=== PATIENT | female | born 1940 | race Two or more races ===

== ENCOUNTER 2018-05-13 23:51 | Emergency (ER) | payer MEDICARE, MEDICAID ==
[~2018-05-13] VITALS: Ht 170.2 cm; Wt 101.7 kg
[2018-05-14 00:39] LABS: GLUCOSE,POINT OF CARE 115 MG/DL (70-110)
[2018-05-14] MEDS ORDERED: RISP.5 PO (00:41)
[2018-05-14] MEDS ORDERED: DIGO-44 PO (00:41)
[2018-05-14] MEDS ORDERED: INSLAN SQ (00:41)
[2018-05-14] MEDS ORDERED: HYDR-4455 PO (00:41)
[2018-05-14] MEDS ORDERED: FURO40 PO (00:41)
[2018-05-14] MEDS ORDERED: PANT40TA25 PO (00:41)
[2018-05-14] MEDS ORDERED: MELA5TAB3 PO (00:41)
[2018-05-14] MEDS ORDERED: GABA-529 PO (00:41)
[2018-05-14] MEDS ORDERED: RISP4 PO (00:41)
[2018-05-14] MEDS ORDERED: ERGO2500 PO (00:41)
[2018-05-14] MEDS ORDERED: INSNOV SQ (00:41)
[2018-05-14] MEDS ORDERED: LOSA50TA64 PO (00:41)
[2018-05-14 01:04] LABS: BASOPHILS % (AUTO) 0.7 % (0.0-2.0); EOSINOPHILS % (AUTO) 0.5 % (1.0-6.0); HEMATOCRIT 28.6 % (36-46); HEMOGLOBIN 9.7 g/dL (12.0-16.0); LYMPHOCYTES # (AUTO) 0.8 K/uL (1.0-4.8); LYMPHOCYTES % (AUTO) 7.6 % (22.0-44.0); MEAN CORPUSCULAR HEMOGLOBIN 30.2 pg (26.0-34.0); MEAN CORPUSCULAR HGB CONC 33.7 G/dL (31.0-37.0); MEAN CORPUSCULAR VOLUME 90 fL (80-100); MONOCYTES # (AUTO) 0.8 K/uL (0.1-1.0); MONOCYTES % (AUTO) 7.8 % (2.0-9.0); NEUTROPHILS # (AUTO) 8.6 K/uL (1.8-7.7); NEUTROPHILS % (AUTO) 83.4 % (40.0-70.0); PLATELET COUNT (AUTO) 450 K/uL (150-450); RED BLOOD CELL COUNT(AUTO) 3.19 MIL/uL (4.00-5.20)
[2018-05-14 01:14] LABS: PROTHROMBIN TIME 10.9 SEC (9.4-11.6)
[2018-05-14 01:21] LABS: APPEARANCE,URINE CLOUDY (CLEAR); BILIRUBIN,URINE NEGATIVE (NEGATIVE); GLUCOSE, URINE (UA) NEGATIVE (NEGATIVE); KETONES,URINE NEGATIVE (NEGATIVE); LEUKOCYTE ESTERASE ,URINE TRACE (NEGATIVE); NITRATE,URINE NEGATIVE (NEGATIVE); OCCULT BLOOD,URINE TRACE (NEGATIVE); PROTEIN,URINE SEE CONFIRM (NEGATIVE); UROBILINOGEN,URINE 0.2 mg/dL (<=1.0)
[2018-05-14 01:26] LABS: LACTIC ACID 0.8 mmol/L (0.4-2.0)
[2018-05-14 01:38] LABS: SULFOSALICYLIC ACID,URINE 2+ (Negative)
[2018-05-14 01:39] LABS: RBC,URINE 0-2 /HPF (0-2)
[2018-05-14 01:40] LABS: SQUAMOUS EPITHELIAL CELL,UR Few /LPF (None Seen); YEAST,URINE Moderate /HPF (None Seen)
[2018-05-14 01:41] LABS: BACTERIA,URINE Moderate /HPF (None Seen)
[2018-05-14] MEDS ORDERED: CefTRIAXone 1 GM/DEXTROSE 50 ML IV ONE (02:00)
[2018-05-14] MEDS ORDERED: ACETAMINOPHEN 1000 MG/ISO-OSM 100 ML IV ONE (02:00)
[2018-05-14 02:50] LABS: INFLUENZA TYPE A NEGATIVE FOR TYPE A (NEGATIVE); INFLUENZA TYPE B NEGATIVE FOR TYPE B (NEGATIVE)
[2018-05-14 03:03] LABS: CALCIUM, TOTAL 8.8 mg/dL (8.8-10.5); CREATININE 3.39 mg/dL (0.60-1.30); POTASSIUM 3.7 mmol/L (3.5-5.1)
[2018-05-14 03:09] LABS: ALBUMIN 1.9 g/dL (3.4-5.0); BILIRUBIN,TOTAL 0.3 mg/dL (0.1-1.0); TOTAL PROTEIN, SERUM 7.1 g/dL (6.4-8.2)
[2018-05-14 03:16] LABS: DIGOXIN 0.98 ng/mL (0.90-2.00)
[2018-05-14 03:33] VITALS: BP 124/68
== END 2018-05-14 04:27 | disposition short-term general hospital (02) ==
LOC: EMS 23:53
DX: A41.9 Sepsis, unspecified organism (principal); R41.82 Altered mental status, unspecified; E78.00 Pure hypercholesterolemia, unspecified; E11.22 Type 2 diabetes mellitus with diabetic chronic kidney disease; I13.2 Hypertensive heart and chronic kidney disease with heart failure and with stage 5 chronic kidney disease, or end stage renal disease; I50.9 Heart failure, unspecified; N18.6 End stage renal disease; I48.91 Unspecified atrial fibrillation; Z79.899 Other long term (current) drug therapy; Z79.4 Long term (current) use of insulin; Z99.2 Dependence on renal dialysis
CPT/HCPCS: 36415; 71045; 80053; 80162; 81001; 82550; 82962; 83605; 83880; 84484; 85025; 85610; 85730; 87040; 87086; 87804; 93005; 96365; 96368; 99291; J0131; J0696

== ENCOUNTER 2018-05-30 14:04 | Inpatient (IN) | payer MEDICARE, MEDICAID ==
[~2018-05-30] VITALS: Ht 167.6 cm; Wt 89.5 kg
[~2018-05-30 14:04] MED LIST: DIGO-44 PO; ERGO2500 PO; FURO40 PO; GABA-529 PO; HYDR-4455 PO; INSLAN SQ; INSNOV SQ; LOSA50TA64 PO; MELA5TAB3 PO; PANT40TA25 PO; RISP.5 PO; RISP4 PO
[2018-05-30] MEDS ORDERED: METO25TA6 PO (14:52)
[2018-05-30] MEDS ORDERED: ASPI81TA87 PO (14:52)
[2018-05-30] MEDS ORDERED: APIX5TAB4 PO (14:52)
[2018-05-30] MEDS ORDERED: [UNRECOGNIZED DRUG - CODE] PO (14:52)
[2018-05-30] MEDS ORDERED: AMLO10TA55 PO (14:52)
[2018-05-30 14:59] LABS: GLUCOSE,POINT OF CARE 176 MG/DL (70-110)
[2018-05-30 17:31] LABS: BASOPHILS % (AUTO) 0.5 % (0.0-2.0); EOSINOPHILS % (AUTO) 0.1 % (1.0-6.0); HEMATOCRIT 27.3 % (36-46); HEMOGLOBIN 8.8 g/dL (12.0-16.0); LYMPHOCYTES # (AUTO) 0.8 K/uL (1.0-4.8); LYMPHOCYTES % (AUTO) 5.7 % (22.0-44.0); MEAN CORPUSCULAR HEMOGLOBIN 27.7 pg (26.0-34.0); MEAN CORPUSCULAR HGB CONC 32.2 G/dL (31.0-37.0); MEAN CORPUSCULAR VOLUME 86 fL (80-100); MONOCYTES # (AUTO) 0.6 K/uL (0.1-1.0); MONOCYTES % (AUTO) 4.5 % (2.0-9.0); NEUTROPHILS # (AUTO) 12.5 K/uL (1.8-7.7); NEUTROPHILS % (AUTO) 89.2 % (40.0-70.0); PLATELET COUNT (AUTO) 428 K/uL (150-450); RED BLOOD CELL COUNT(AUTO) 3.17 MIL/uL (4.00-5.20); RED CELL DISTRIBUTION WIDTH 17.5 % (11.5-14.5)
[2018-05-30 17:41] LABS: CALCIUM, TOTAL 8.7 mg/dL (8.8-10.5); CREATININE 5.73 mg/dL (0.60-1.30); POTASSIUM 3.6 mmol/L (3.5-5.1)
[2018-05-30 18:07] LABS: ALBUMIN 1.9 g/dL (3.4-5.0); BILIRUBIN,TOTAL 0.4 mg/dL (0.1-1.0); TOTAL PROTEIN, SERUM 7.1 g/dL (6.4-8.2)
[2018-05-30] MEDS ORDERED: ONDANSETRON HCL 4 MG/2 ML VIAL IVP PRN ×2 (18:45→22:00)
[2018-05-30] MEDS ORDERED: 0.9% SODIUM CHLORIDE 10 ML SYRINGE IVP PRN (18:45)
[2018-05-30] MEDS ORDERED: ACETAMINOPHEN 325 MG TABLET PO PRN (18:45)
[2018-05-30 21:11] VITALS: BP 124/55
[2018-05-30 21:19] LABS: APPEARANCE,URINE CLOUDY (CLEAR); BILIRUBIN,URINE NEGATIVE (NEGATIVE); GLUCOSE, URINE (UA) NEGATIVE (NEGATIVE); KETONES,URINE NEGATIVE (NEGATIVE); LEUKOCYTE ESTERASE ,URINE LARGE (NEGATIVE); NITRATE,URINE NEGATIVE (NEGATIVE); OCCULT BLOOD,URINE MODERATE (NEGATIVE); PH,URINE 7.5 (5.0-8.0); PROTEIN,URINE SEE CONFIRM (NEGATIVE); UROBILINOGEN,URINE 0.2 mg/dL (<=1.0)
[2018-05-30 21:23] LABS: BACTERIA,URINE Many /HPF (None Seen); SQUAMOUS EPITHELIAL CELL,UR Few /LPF (None Seen); SULFOSALICYLIC ACID,URINE 3+ (Negative); WBC,URINE 26-50 /HPF (0-5)
[2018-05-30] MEDS ORDERED: MAGNESIUM HYDROXIDE SUSPENSION 30 ML UDCUP PO PRN (22:00)
[2018-05-30] MEDS ORDERED: ALBUTEROL SULFATE 2.5 MG/0.5 ML NEB SOLUTION NEB PRN (22:00)
[2018-05-30] MEDS ORDERED: HYDROCODONE/ACETAMINOPHEN 10-325 MG TABLET PO PRN (22:00)
[2018-05-30] MEDS ORDERED: MELATONIN 5 MG TABLET PO PRN (22:00)
[2018-05-30] MEDS ORDERED: IPRATROPIUM BROMIDE 0.5 MG/2.5 ML NEB SOLUTION NEB PRN (22:00)
[2018-05-30] MEDS ORDERED: BISACODYL 10 MG RECTAL RECTAL SUPPOSITORY PR PRN (22:00)
[2018-05-30] MEDS ORDERED: DEXTROSE 50%-WATER 25 GM/50 ML SYRINGE IVP PRN (22:30)
[2018-05-30] MEDS ORDERED: SODIUM CHLORIDE 0.9% 100 ML ONE (23:33)
[2018-05-30] MEDS: HEPARIN SODIUM,PORCINE 5,000 UNITS/ML VIAL SQ SCH (23:42)
[2018-05-30] MEDS: CefTRIAXone 1 GM/DEXTROSE 50 ML IV SCH (23:43)
[2018-05-31 01:36] VITALS: BP 141/60
[2018-05-31 04:54] VITALS: BP 153/66
[2018-05-31] MEDS: PANTOPRAZOLE SODIUM 40 MG DR TABLET PO SCH (06:26)
[2018-05-31] MEDS: INSULIN LISPRO 100 UNITS/ML SQ PRN ×2 (06:28→20:34)
[2018-05-31 07:01] LABS: BASOPHILS % (AUTO) 0.5 % (0.0-2.0); EOSINOPHILS % (AUTO) 0.9 % (1.0-6.0); HEMATOCRIT 25.7 % (36-46); HEMOGLOBIN 8.3 g/dL (12.0-16.0); LYMPHOCYTES # (AUTO) 0.9 K/uL (1.0-4.8); LYMPHOCYTES % (AUTO) 8.8 % (22.0-44.0); MEAN CORPUSCULAR HEMOGLOBIN 28.4 pg (26.0-34.0); MEAN CORPUSCULAR HGB CONC 32.3 G/dL (31.0-37.0); MEAN CORPUSCULAR VOLUME 88 fL (80-100); MONOCYTES # (AUTO) 0.9 K/uL (0.1-1.0); MONOCYTES % (AUTO) 8.8 % (2.0-9.0); NEUTROPHILS # (AUTO) 8.1 K/uL (1.8-7.7); PLATELET COUNT (AUTO) 399 K/uL (150-450); RED BLOOD CELL COUNT(AUTO) 2.94 MIL/uL (4.00-5.20); RED CELL DISTRIBUTION WIDTH 17.2 % (11.5-14.5)
[2018-05-31 07:08] LABS: HEMOGLOBIN A1C 7.4 % (4.5-6.2)
[2018-05-31 07:47] VITALS: BP 144/57
[2018-05-31 07:49] LABS: CALCIUM, TOTAL 8.4 mg/dL (8.8-10.5); CHOL/HDL RATIO 4.7 (3.9-5.7); CREATININE 6.14 mg/dL (0.60-1.30); FREE T4 (FREE THYROXINE) 0.94 ng/dL (0.76-1.46); MAGNESIUM 2.5 mg/dL (1.80-2.40); POTASSIUM 3.4 mmol/L (3.5-5.1); THYROID STIMULATING HORMONE 3.28 uIU/mL (0.36-3.74)
[2018-05-31] MEDS: AmLODIPine BESYLATE 10 MG TABLET PO SCH (08:28)
[2018-05-31] MEDS: ASPIRIN 81 MG EC TABLET PO SCH (08:28)
[2018-05-31] MEDS: FUROSEMIDE 20 MG TABLET PO SCH ×2 (08:28→20:33)
[2018-05-31] MEDS: APIXABAN 2.5 MG TABLET PO SCH ×2 (08:28→20:33)
[2018-05-31] MEDS: HEPARIN SODIUM,PORCINE 5,000 UNITS/ML VIAL SQ SCH ×2 (08:28→20:34)
[2018-05-31] MEDS: DIGOXIN 125 MCG TABLET PO SCH (08:28)
[2018-05-31] MEDS: RisperiDONE 0.5 MG TABLET PO SCH ×2 (08:28→18:28)
[2018-05-31] MEDS: METOPROLOL TARTRATE 25 MG TABLET PO SCH ×2 (08:28→20:33)
[2018-05-31] MEDS: INSULIN GLARGINE,HUM.REC.ANLOG 100 UNITS/ML SQ SCH (08:30)
[2018-05-31] MEDS ORDERED: LOSARTAN POTASSIUM 25 MG TABLET PO SCH (09:00)
[2018-05-31 09:49] LABS: GLUCOMETER DEV NAME(LOC) 5S.1; GLUCOSE,POINT OF CARE 141 MG/DL (70-110)
[2018-05-31 11:49] VITALS: BP 115/49
[2018-05-31 11:54] LABS: GLUCOMETER DEV NAME(LOC) 5S.1; GLUCOSE,POINT OF CARE 183 MG/DL (70-110)
[2018-05-31] MEDS: RisperiDONE 4 MG TABLET PO SCH ×2 (18:25→20:37)
[2018-05-31 20:10] VITALS: BP 169/56
[2018-05-31] MEDS: GABAPENTIN 100 MG CAPSULE PO SCH (20:37)
[2018-05-31 23:39] LABS: GLUCOMETER DEV NAME(LOC) 5S.1; GLUCOSE,POINT OF CARE 148 MG/DL (70-110)
[2018-05-31 23:39] LABS: GLUCOMETER DEV NAME(LOC) 5S.1; GLUCOSE,POINT OF CARE 120 MG/DL (70-110)
[2018-06-01] VITALS (7 sets, daily range): BP systolic 97–149; BP diastolic 48–59
[2018-06-01] MEDS: CefTRIAXone 1 GM/DEXTROSE 50 ML IV SCH ×2 (00:45→23:09)
[2018-06-01] MEDS: INSULIN LISPRO 100 UNITS/ML SQ PRN ×2 (06:05→21:23)
[2018-06-01] MEDS: PANTOPRAZOLE SODIUM 40 MG DR TABLET PO SCH (06:08)
[2018-06-01 06:54] LABS: GLUCOMETER DEV NAME(LOC) 5S.1; GLUCOSE,POINT OF CARE 139 MG/DL (70-110)
[2018-06-01] MEDS: AmLODIPine BESYLATE 10 MG TABLET PO SCH (09:00)
[2018-06-01] MEDS: INSULIN GLARGINE,HUM.REC.ANLOG 100 UNITS/ML SQ SCH (09:00)
[2018-06-01] MEDS: METOPROLOL TARTRATE 25 MG TABLET PO SCH ×2 (09:00→21:00)
[2018-06-01] MEDS: ACETAMINOPHEN 325 MG TABLET PO PRN (09:17)
[2018-06-01] MEDS: APIXABAN 2.5 MG TABLET PO SCH ×2 (09:17→21:11)
[2018-06-01] MEDS: ASPIRIN 81 MG EC TABLET PO SCH (09:17)
[2018-06-01] MEDS: DIGOXIN 125 MCG TABLET PO SCH (09:17)
[2018-06-01] MEDS: FUROSEMIDE 20 MG TABLET PO SCH ×2 (09:17→21:00)
[2018-06-01] MEDS: RisperiDONE 0.5 MG TABLET PO SCH ×2 (09:17→18:11)
[2018-06-01] MEDS: HEPARIN SODIUM,PORCINE 5,000 UNITS/ML VIAL SQ SCH ×2 (09:18→21:11)
[2018-06-01] MEDS ORDERED: HEPARIN SODIUM,PORCINE 1,000 UNITS/ML VIAL IVP ONE ×2 (11:42→12:00)
[2018-06-01] MEDS ORDERED: MANNITOL 25%-12.5 GM/50 ML VIAL IVP ONE (12:00)
[2018-06-01 15:19] LABS: GLUCOMETER DEV NAME(LOC) 5S.1; GLUCOSE,POINT OF CARE 182 MG/DL (70-110)
[2018-06-01] MEDS ORDERED: DIGOXIN 250 MCG/ML 2 ML AMP IVP ONE (17:45)
[2018-06-01] MEDS: PARICALCITOL 1 MCG CAPSULE PO SCH (18:11)
[2018-06-01] MEDS: EPOETIN ALFA 10,000 UNITS/ML VIAL SQ SCH (18:12)
[2018-06-01] MEDS: LOSARTAN POTASSIUM 25 MG TABLET PO SCH (21:00)
[2018-06-01] MEDS: GABAPENTIN 100 MG CAPSULE PO SCH (21:11)
[2018-06-01] MEDS: RisperiDONE 4 MG TABLET PO SCH (21:11)
[2018-06-02] VITALS (7 sets, daily range): BP systolic 115–146; BP diastolic 40–62
[2018-06-02] MEDS ORDERED: SODIUM CHLORIDE 0.9% 2,000 ML IV ONE (03:57)
[2018-06-02] MEDS: PANTOPRAZOLE SODIUM 40 MG DR TABLET PO SCH (06:30)
[2018-06-02 06:33] LABS: CALCIUM, TOTAL 8.6 mg/dL (8.8-10.5); CREATININE 2.47 mg/dL (0.60-1.30); POTASSIUM 3.8 mmol/L (3.5-5.1)
[2018-06-02] MEDS: RisperiDONE 0.5 MG TABLET PO SCH ×2 (08:23→17:51)
[2018-06-02] MEDS: HEPARIN SODIUM,PORCINE 5,000 UNITS/ML VIAL SQ SCH ×2 (08:23→21:09)
[2018-06-02] MEDS: METOPROLOL TARTRATE 25 MG TABLET PO SCH ×2 (08:24→21:08)
[2018-06-02] MEDS: APIXABAN 2.5 MG TABLET PO SCH ×2 (08:24→21:08)
[2018-06-02] MEDS: ASPIRIN 81 MG EC TABLET PO SCH (08:24)
[2018-06-02] MEDS: FUROSEMIDE 20 MG TABLET PO SCH ×2 (08:24→21:08)
[2018-06-02] MEDS: DIGOXIN 125 MCG TABLET PO SCH (08:24)
[2018-06-02] MEDS: INSULIN GLARGINE,HUM.REC.ANLOG 100 UNITS/ML SQ SCH (08:25)
[2018-06-02] MEDS: AmLODIPine BESYLATE 10 MG TABLET PO SCH (08:26)
[2018-06-02] MEDS: LOSARTAN POTASSIUM 25 MG TABLET PO SCH ×2 (08:27→21:08)
[2018-06-02 10:25] LABS: RED BLOOD CELL COUNT(AUTO) 3.06 MIL/uL (4.00-5.20)
[2018-06-02 10:40] LABS: BASOPHILS % (AUTO) 0.9 % (0.0-2.0); EOSINOPHILS % (AUTO) 0.2 % (1.0-6.0); HEMATOCRIT 27.3 % (36-46); HEMOGLOBIN 8.6 g/dL (12.0-16.0); LYMPHOCYTES % (AUTO) 7.6 % (22.0-44.0); MEAN CORPUSCULAR HEMOGLOBIN 28.2 pg (26.0-34.0); MEAN CORPUSCULAR HGB CONC 31.7 G/dL (31.0-37.0); MEAN CORPUSCULAR VOLUME 89 fL (80-100); MONOCYTES # (AUTO) 0.8 K/uL (0.1-1.0); MONOCYTES % (AUTO) 6.6 % (2.0-9.0); NEUTROPHILS # (AUTO) 10.8 K/uL (1.8-7.7); NEUTROPHILS % (AUTO) 84.7 % (40.0-70.0); PLATELET COUNT (AUTO) 394 K/uL (150-450); RED CELL DISTRIBUTION WIDTH 17.6 % (11.5-14.5)
[2018-06-02] MEDS ORDERED: HEPARIN SODIUM,PORCINE 1,000 UNITS/ML VIAL IVP ONE (10:50)
[2018-06-02 11:09] LABS: GLUCOMETER DEV NAME(LOC) 5S.1; GLUCOSE,POINT OF CARE 128 MG/DL (70-110)
[2018-06-02 11:10] LABS: GLUCOMETER DEV NAME(LOC) 5S.1; GLUCOSE,POINT OF CARE 172 MG/DL (70-110)
[2018-06-02] MEDS ORDERED: APIX2.5T PO (11:43)
[2018-06-02] MEDS ORDERED: VANC125C5 PO (11:43)
[2018-06-02] MEDS ORDERED: ERGO500014 PO (11:43)
[2018-06-02] MEDS: ACETAMINOPHEN 325 MG TABLET PO PRN ×2 (11:54→23:53)
[2018-06-02] MEDS: INSULIN LISPRO 100 UNITS/ML SQ PRN ×2 (12:21→17:53)
[2018-06-02] MEDS ORDERED: VANCOMYCIN HCL 1 GM/D5% WATER 200 ML IV ONE (13:00)
[2018-06-02] MEDS ORDERED: VANCOMYCIN HCL 1 GM/D5% WATER 200 ML IV PRN (13:00)
[2018-06-02 13:29] LABS: GLUCOMETER DEV NAME(LOC) 5S.2; GLUCOSE,POINT OF CARE 246 MG/DL (70-110)
[2018-06-02 13:55] LABS: APPEARANCE,URINE TURBID (CLEAR); BILIRUBIN,URINE NEGATIVE (NEGATIVE); GLUCOSE, URINE (UA) NEGATIVE (NEGATIVE); KETONES,URINE TRACE mg/dL (NEGATIVE); LEUKOCYTE ESTERASE ,URINE LARGE (NEGATIVE); NITRATE,URINE NEGATIVE (NEGATIVE); OCCULT BLOOD,URINE MODERATE (NEGATIVE); PH,URINE 7.5 (5.0-8.0); PROTEIN,URINE SEE CONFIRM (NEGATIVE); UROBILINOGEN,URINE 0.2 mg/dL (<=1.0)
[2018-06-02 14:04] LABS: SULFOSALICYLIC ACID,URINE 3+ (Negative)
[2018-06-02 14:06] LABS: BACTERIA,URINE Many /HPF (None Seen); SQUAMOUS EPITHELIAL CELL,UR Few /LPF (None Seen); WBC,URINE 51-100 /HPF (0-5)
[2018-06-02] MEDS: GABAPENTIN 100 MG CAPSULE PO SCH (21:08)
[2018-06-02] MEDS: RisperiDONE 4 MG TABLET PO SCH (21:08)
[2018-06-02] MEDS: CefTRIAXone 1 GM/DEXTROSE 50 ML IV SCH (22:53)
[2018-06-03 01:34] LABS: GLUCOMETER DEV NAME(LOC) 5S.2; GLUCOSE,POINT OF CARE 147 MG/DL (70-110)
[2018-06-03 05:20] VITALS: BP 112/55
[2018-06-03] MEDS: PANTOPRAZOLE SODIUM 40 MG DR TABLET PO SCH (06:30)
[2018-06-03 08:00] VITALS: BP 108/37
[2018-06-03] MEDS: LOSARTAN POTASSIUM 25 MG TABLET PO SCH ×2 (09:00→20:51)
[2018-06-03] MEDS: AmLODIPine BESYLATE 10 MG TABLET PO SCH (09:00)
[2018-06-03] MEDS: RisperiDONE 0.5 MG TABLET PO SCH ×2 (09:02→17:57)
[2018-06-03] MEDS: PARICALCITOL 1 MCG CAPSULE PO SCH (09:03)
[2018-06-03] MEDS: HEPARIN SODIUM,PORCINE 5,000 UNITS/ML VIAL SQ SCH ×2 (09:04→21:04)
[2018-06-03] MEDS: ASPIRIN 81 MG EC TABLET PO SCH (09:04)
[2018-06-03] MEDS: ACETAMINOPHEN 325 MG TABLET PO PRN (09:04)
[2018-06-03] MEDS: EPOETIN ALFA 10,000 UNITS/ML VIAL SQ SCH (09:04)
[2018-06-03] MEDS: APIXABAN 2.5 MG TABLET PO SCH ×2 (09:05→21:04)
[2018-06-03] MEDS: FUROSEMIDE 20 MG TABLET PO SCH ×2 (09:05→21:03)
[2018-06-03] MEDS: METOPROLOL TARTRATE 25 MG TABLET PO SCH (09:05)
[2018-06-03] MEDS: INSULIN GLARGINE,HUM.REC.ANLOG 100 UNITS/ML SQ SCH (09:11)
[2018-06-03] MEDS: AMPICILLIN SODIUM 1 GM/NS 50 ML IV SCH (12:22)
[2018-06-03] MEDS: INSULIN LISPRO 100 UNITS/ML SQ PRN ×3 (12:27→21:05)
[2018-06-03 14:20] LABS: GLUCOMETER DEV NAME(LOC) 5S.1; GLUCOSE,POINT OF CARE 176 MG/DL (70-110)
[2018-06-03 14:20] LABS: GLUCOMETER DEV NAME(LOC) 5S.1; GLUCOSE,POINT OF CARE 150 MG/DL (70-110)
[2018-06-03] MEDS ORDERED: VANCOMYCIN HCL 1 GM/D5% WATER 200 ML IV ONE (16:00)
[2018-06-03 16:09] VITALS: BP 112/41
[2018-06-03 20:19] LABS: GLUCOMETER DEV NAME(LOC) 5S.2; GLUCOSE,POINT OF CARE 150 MG/DL (70-110)
[2018-06-03] MEDS: RisperiDONE 4 MG TABLET PO SCH (21:03)
[2018-06-03] MEDS: GABAPENTIN 100 MG CAPSULE PO SCH (21:03)
[2018-06-03 23:35] VITALS: BP 141/50
[2018-06-04] MEDS: AMPICILLIN SODIUM 1 GM/NS 50 ML IV SCH ×2 (00:13→11:43)
[2018-06-04] MEDS: METOPROLOL TARTRATE 25 MG TABLET PO SCH ×2 (01:50→08:34)
[2018-06-04 05:00] VITALS: BP 121/40
[2018-06-04] MEDS: PANTOPRAZOLE SODIUM 40 MG DR TABLET PO SCH (06:11)
[2018-06-04] MEDS: INSULIN LISPRO 100 UNITS/ML SQ PRN ×4 (06:19→21:35)
[2018-06-04 06:51] LABS: GLUCOMETER DEV NAME(LOC) 5S.2; GLUCOSE,POINT OF CARE 183 MG/DL (70-110)
[2018-06-04 06:51] LABS: GLUCOMETER DEV NAME(LOC) 5S.2; GLUCOSE,POINT OF CARE 167 MG/DL (70-110)
[2018-06-04 07:14] LABS: BASOPHILS % (AUTO) 1.4 % (0.0-2.0); EOSINOPHILS % (AUTO) 2.2 % (1.0-6.0); HEMATOCRIT 26.8 % (36-46); HEMOGLOBIN 8.9 g/dL (12.0-16.0); LYMPHOCYTES # (AUTO) 1.1 K/uL (1.0-4.8); LYMPHOCYTES % (AUTO) 13.8 % (22.0-44.0); MEAN CORPUSCULAR HEMOGLOBIN 28.7 pg (26.0-34.0); MEAN CORPUSCULAR HGB CONC 33.2 G/dL (31.0-37.0); MEAN CORPUSCULAR VOLUME 87 fL (80-100); MONOCYTES # (AUTO) 0.7 K/uL (0.1-1.0); MONOCYTES % (AUTO) 8.5 % (2.0-9.0); NEUTROPHILS # (AUTO) 5.7 K/uL (1.8-7.7); NEUTROPHILS % (AUTO) 74.1 % (40.0-70.0); PLATELET COUNT (AUTO) 492 K/uL (150-450); RED CELL DISTRIBUTION WIDTH 17.3 % (11.5-14.5)
[2018-06-04 07:48] LABS: ALBUMIN 1.9 g/dL (3.4-5.0); BILIRUBIN,TOTAL 0.2 mg/dL (0.1-1.0); CALCIUM, TOTAL 8.9 mg/dL (8.8-10.5); CREATININE 4.86 mg/dL (0.60-1.30); DIGOXIN 1.74 ng/mL (0.90-2.00); MAGNESIUM 2.1 mg/dL (1.80-2.40); POTASSIUM 3.9 mmol/L (3.5-5.1); TOTAL PROTEIN, SERUM 6.4 g/dL (6.4-8.2)
[2018-06-04 08:06] VITALS: BP 130/48
[2018-06-04] MEDS: INSULIN GLARGINE,HUM.REC.ANLOG 100 UNITS/ML SQ SCH (08:19)
[2018-06-04] MEDS: HEPARIN SODIUM,PORCINE 5,000 UNITS/ML VIAL SQ SCH ×2 (08:32→20:43)
[2018-06-04] MEDS: APIXABAN 2.5 MG TABLET PO SCH (08:34)
[2018-06-04] MEDS: AmLODIPine BESYLATE 10 MG TABLET PO SCH (08:34)
[2018-06-04] MEDS: LOSARTAN POTASSIUM 25 MG TABLET PO SCH (08:34)
[2018-06-04] MEDS: ASPIRIN 81 MG EC TABLET PO SCH (08:34)
[2018-06-04] MEDS: FUROSEMIDE 20 MG TABLET PO SCH (08:34)
[2018-06-04] MEDS: RisperiDONE 0.5 MG TABLET PO SCH ×2 (08:34→16:31)
[2018-06-04 11:20] VITALS: BP 136/48
[2018-06-04 16:18] VITALS: BP 115/54
[2018-06-04] MEDS: ACETAMINOPHEN 325 MG TABLET PO PRN (16:32)
[2018-06-04] MEDS: DAPTOMYCIN 500 MG in SODIUM CHLORIDE 0.9% 50 ML IV SCH (18:06)
[2018-06-04 19:40] VITALS: BP 107/47
[2018-06-04 20:30] LABS: GLUCOMETER DEV NAME(LOC) 5S.2; GLUCOSE,POINT OF CARE 209 MG/DL (70-110)
[2018-06-04] MEDS ORDERED: SODIUM CHLORIDE 0.9% 250 ML IV ONE (20:37)
[2018-06-04 23:42] VITALS: BP 110/51
[2018-06-05] MEDS: LOSARTAN POTASSIUM 25 MG TABLET PO SCH ×3 (00:07→19:52)
[2018-06-05] MEDS: APIXABAN 2.5 MG TABLET PO SCH ×3 (00:07→19:52)
[2018-06-05] MEDS: FUROSEMIDE 20 MG TABLET PO SCH ×3 (00:07→19:52)
[2018-06-05] MEDS: METOPROLOL TARTRATE 25 MG TABLET PO SCH ×3 (00:08→19:58)
[2018-06-05] MEDS: RisperiDONE 4 MG TABLET PO SCH ×2 (00:08→19:51)
[2018-06-05] MEDS: GABAPENTIN 100 MG CAPSULE PO SCH ×2 (00:08→19:52)
[2018-06-05 00:45] LABS: GLUCOMETER DEV NAME(LOC) 5S.1; GLUCOSE,POINT OF CARE 172 MG/DL (70-110)
[2018-06-05 03:26] VITALS: BP 111/48
[2018-06-05] MEDS: PANTOPRAZOLE SODIUM 40 MG DR TABLET PO SCH (06:10)
[2018-06-05] MEDS: INSULIN LISPRO 100 UNITS/ML SQ PRN ×3 (06:34→20:03)
[2018-06-05 07:19] LABS: GLUCOMETER DEV NAME(LOC) 5S.1; GLUCOSE,POINT OF CARE 160 MG/DL (70-110)
[2018-06-05 07:35] VITALS: BP 109/40
[2018-06-05] MEDS: LACTOBAC ACID/BULG/BIFID/THERM TABLET PO SCH (08:23)
[2018-06-05] MEDS: ASPIRIN 81 MG EC TABLET PO SCH (08:24)
[2018-06-05] MEDS: VITAMIN B COMP/VIT C/FOLIC ACID CAPSULE PO SCH (08:24)
[2018-06-05] MEDS: RisperiDONE 0.5 MG TABLET PO SCH ×2 (08:25→17:40)
[2018-06-05] MEDS: HEPARIN SODIUM,PORCINE 5,000 UNITS/ML VIAL SQ SCH ×2 (08:25→19:51)
[2018-06-05] MEDS: INSULIN GLARGINE,HUM.REC.ANLOG 100 UNITS/ML SQ SCH (08:28)
[2018-06-05] MEDS: AmLODIPine BESYLATE 10 MG TABLET PO SCH (08:51)
[2018-06-05 09:42] LABS: VANCOMYCIN,RANDOM 27.2 mcg/mL (25.0-50.0)
[2018-06-05 10:56] VITALS: BP 132/46
[2018-06-05 11:21] LABS: BASOPHILS % (AUTO) 1.3 % (0.0-2.0); EOSINOPHILS % (AUTO) 2.1 % (1.0-6.0); HEMATOCRIT 26.6 % (36-46); HEMOGLOBIN 8.5 g/dL (12.0-16.0); LYMPHOCYTES # (AUTO) 1.1 K/uL (1.0-4.8); LYMPHOCYTES % (AUTO) 12.5 % (22.0-44.0); MEAN CORPUSCULAR HEMOGLOBIN 27.7 pg (26.0-34.0); MEAN CORPUSCULAR HGB CONC 31.9 G/dL (31.0-37.0); MEAN CORPUSCULAR VOLUME 87 fL (80-100); MONOCYTES # (AUTO) 0.7 K/uL (0.1-1.0); MONOCYTES % (AUTO) 8.7 % (2.0-9.0); NEUTROPHILS # (AUTO) 6.5 K/uL (1.8-7.7); NEUTROPHILS % (AUTO) 75.4 % (40.0-70.0); PLATELET COUNT (AUTO) 570 K/uL (150-450); RED BLOOD CELL COUNT(AUTO) 3.06 MIL/uL (4.00-5.20); RED CELL DISTRIBUTION WIDTH 17.5 % (11.5-14.5)
[2018-06-05 11:32] LABS: CALCIUM, TOTAL 9.1 mg/dL (8.8-10.5); CREATININE 5.67 mg/dL (0.60-1.30); POTASSIUM 4.1 mmol/L (3.5-5.1)
[2018-06-05 12:35] LABS: GLUCOMETER DEV NAME(LOC) 5S.1; GLUCOSE,POINT OF CARE 175 MG/DL (70-110)
[2018-06-05 16:07] VITALS: BP 114/58
[2018-06-05] MEDS ORDERED: LEVOFLOXACIN 250 MG TABLET PO ONE (16:15)
[2018-06-05] MEDS ORDERED: SODIUM CITRATE 4% CATH FLUSH 5 ML SYRINGE IVP ONE ×2 (17:30)
[2018-06-05] MEDS ORDERED: MANNITOL 25%-12.5 GM/50 ML VIAL IVP PRN (17:30)
[2018-06-05 19:53] VITALS: BP 114/63
[2018-06-05 23:46] VITALS: BP 104/59
[2018-06-06 04:54] VITALS: BP 127/45
[2018-06-06] MEDS: PANTOPRAZOLE SODIUM 40 MG DR TABLET PO SCH (05:40)
[2018-06-06 06:36] LABS: GLUCOMETER DEV NAME(LOC) 5S.2; GLUCOSE,POINT OF CARE 99 MG/DL (70-110)
[2018-06-06 06:37] LABS: GLUCOMETER DEV NAME(LOC) 5S.2; GLUCOSE,POINT OF CARE 146 MG/DL (70-110)
[2018-06-06 08:05] VITALS: BP 143/57
[2018-06-06] MEDS: LACTOBAC ACID/BULG/BIFID/THERM TABLET PO SCH (08:21)
[2018-06-06] MEDS: APIXABAN 2.5 MG TABLET PO SCH ×2 (08:21→20:39)
[2018-06-06] MEDS: ASPIRIN 81 MG EC TABLET PO SCH (08:21)
[2018-06-06] MEDS: LOSARTAN POTASSIUM 25 MG TABLET PO SCH ×2 (08:21→20:39)
[2018-06-06] MEDS: FUROSEMIDE 20 MG TABLET PO SCH ×2 (08:22→20:39)
[2018-06-06] MEDS: METOPROLOL TARTRATE 25 MG TABLET PO SCH ×2 (08:22→21:00)
[2018-06-06] MEDS: AmLODIPine BESYLATE 10 MG TABLET PO SCH (08:22)
[2018-06-06] MEDS: EPOETIN ALFA 10,000 UNITS/ML VIAL SQ SCH (08:23)
[2018-06-06] MEDS: HEPARIN SODIUM,PORCINE 5,000 UNITS/ML VIAL SQ SCH ×2 (08:23→20:37)
[2018-06-06] MEDS: RisperiDONE 0.5 MG TABLET PO SCH ×2 (08:23→17:22)
[2018-06-06] MEDS: PARICALCITOL 1 MCG CAPSULE PO SCH (08:23)
[2018-06-06] MEDS: INSULIN GLARGINE,HUM.REC.ANLOG 100 UNITS/ML SQ SCH (08:25)
[2018-06-06] MEDS: VITAMIN B COMP/VIT C/FOLIC ACID CAPSULE PO SCH (09:00)
[2018-06-06 11:35] VITALS: BP 148/54
[2018-06-06] MEDS: INSULIN LISPRO 100 UNITS/ML SQ PRN (11:45)
[2018-06-06 13:04] LABS: GLUCOMETER DEV NAME(LOC) 5S.2; GLUCOSE,POINT OF CARE 236 MG/DL (70-110)
[2018-06-06] MEDS ORDERED: SODIUM CHLORIDE 0.9% 2,000 ML IV ONE (14:40)
[2018-06-06] MEDS ORDERED: SODIUM CITRATE 4% CATH FLUSH 5 ML SYRINGE IVP ONE ×2 (15:00)
[2018-06-06 15:33] VITALS: BP 155/66
[2018-06-06] MEDS: ACETAMINOPHEN 325 MG TABLET PO PRN (16:09)
[2018-06-06] MEDS: DAPTOMYCIN 500 MG in SODIUM CHLORIDE 0.9% 50 ML IV SCH (18:38)
[2018-06-06 18:39] LABS: GLUCOMETER DEV NAME(LOC) 5S.2; GLUCOSE,POINT OF CARE 123 MG/DL (70-110)
[2018-06-06 20:07] VITALS: BP 127/50
[2018-06-06] MEDS: GABAPENTIN 100 MG CAPSULE PO SCH (20:39)
[2018-06-06] MEDS: RisperiDONE 4 MG TABLET PO SCH (20:39)
[2018-06-07 00:34] VITALS: BP 121/42
[2018-06-07 02:37] LABS: GLUCOMETER DEV NAME(LOC) 5S.2; GLUCOSE,POINT OF CARE 136 MG/DL (70-110)
[2018-06-07 05:43] VITALS: BP 113/40
[2018-06-07] MEDS: PANTOPRAZOLE SODIUM 40 MG DR TABLET PO SCH (05:47)
[2018-06-07] MEDS: INSULIN LISPRO 100 UNITS/ML SQ PRN ×2 (06:16→13:14)
[2018-06-07 08:09] LABS: GLUCOMETER DEV NAME(LOC) 5S.1; GLUCOSE,POINT OF CARE 159 MG/DL (70-110)
[2018-06-07 08:15] VITALS: BP 120/46
[2018-06-07] MEDS: AmLODIPine BESYLATE 10 MG TABLET PO SCH (09:00)
[2018-06-07] MEDS ORDERED: LEVOFLOXACIN 500 MG TABLET PO SCH (09:00)
[2018-06-07] MEDS: LOSARTAN POTASSIUM 25 MG TABLET PO SCH (09:00)
[2018-06-07] MEDS: LACTOBAC ACID/BULG/BIFID/THERM TABLET PO SCH (09:03)
[2018-06-07] MEDS: METOPROLOL TARTRATE 25 MG TABLET PO SCH (09:03)
[2018-06-07] MEDS: FUROSEMIDE 20 MG TABLET PO SCH (09:03)
[2018-06-07] MEDS: RisperiDONE 0.5 MG TABLET PO SCH (09:03)
[2018-06-07] MEDS: APIXABAN 2.5 MG TABLET PO SCH (09:04)
[2018-06-07] MEDS: VITAMIN B COMP/VIT C/FOLIC ACID CAPSULE PO SCH (09:04)
[2018-06-07] MEDS: ASPIRIN 81 MG EC TABLET PO SCH (09:04)
[2018-06-07] MEDS: HEPARIN SODIUM,PORCINE 5,000 UNITS/ML VIAL SQ SCH (09:04)
[2018-06-07] MEDS: INSULIN GLARGINE,HUM.REC.ANLOG 100 UNITS/ML SQ SCH (09:08)
[2018-06-07 09:59] LABS: GLUCOMETER DEV NAME(LOC) 5S.1; GLUCOSE,POINT OF CARE 154 MG/DL (70-110)
[2018-06-07 11:46] VITALS: BP 116/38
[2018-06-07 13:39] LABS: GLUCOMETER DEV NAME(LOC) 5S.1; GLUCOSE,POINT OF CARE 186 MG/DL (70-110)
[2018-06-07] MEDS ORDERED: DAPT500I IV (15:26)
[2018-06-07] MEDS ORDERED: EPOE20002 SQ (15:27)
[2018-06-07] MEDS ORDERED: LEVO500 PO (15:30)
[2018-06-07] MEDS ORDERED: VITA1TAB22 PO (15:31)
[2018-06-07] MEDS ORDERED: AUD NEB (15:33)
[2018-06-07] MEDS ORDERED: ACET-2247 PO (15:33)
[2018-06-07] MEDS ORDERED: BISA5TAB12 PR (15:34)
== END 2018-06-07 16:35 | DRG 871 ==
LOC: EMS 14:05 → 5S 19:30
PROVIDERS: ADMIT Internal Medicine Geriatric Medicine; ATTEND Internal Medicine Geriatric Medicine
PROC: 5A1D70Z Performance of Urinary Filtration, Intermittent, Less than 6 Hours Per Day (ICD-10-PCS; principal; 2018-06-01)
PROC: 5A1D70Z Performance of Urinary Filtration, Intermittent, Less than 6 Hours Per Day (ICD-10-PCS; 2018-06-02)
PROC: 5A1D70Z Performance of Urinary Filtration, Intermittent, Less than 6 Hours Per Day (ICD-10-PCS; 2018-06-05)
PROC: 5A1D70Z Performance of Urinary Filtration, Intermittent, Less than 6 Hours Per Day (ICD-10-PCS; 2018-06-06)
DX: A41.9 Sepsis, unspecified organism (principal); N18.6 End stage renal disease; I13.2 Hypertensive heart and chronic kidney disease with heart failure and with stage 5 chronic kidney disease, or end stage renal disease; E46 Unspecified protein-calorie malnutrition; N39.0 Urinary tract infection, site not specified; I82.C11 Acute embolism and thrombosis of right internal jugular vein; N25.81 Secondary hyperparathyroidism of renal origin; E87.1 Hypo-osmolality and hyponatremia; I50.9 Heart failure, unspecified; I48.91 Unspecified atrial fibrillation; D63.1 Anemia in chronic kidney disease; E11.22 Type 2 diabetes mellitus with diabetic chronic kidney disease; E11.65 Type 2 diabetes mellitus with hyperglycemia; E78.00 Pure hypercholesterolemia, unspecified; E78.5 Hyperlipidemia, unspecified; E83.39 Other disorders of phosphorus metabolism; E83.51 Hypocalcemia; R47.1 Dysarthria and anarthria; E87.6 Hypokalemia; F03.90 Unspecified dementia, unspecified severity, without behavioral disturbance, psychotic disturbance, mood disturbance, and anxiety; B95.2 Enterococcus as the cause of diseases classified elsewhere; I35.0 Nonrheumatic aortic (valve) stenosis; Z16.21 Resistance to vancomycin; B96.5 Pseudomonas (aeruginosa) (mallei) (pseudomallei) as the cause of diseases classified elsewhere; M17.0 Bilateral primary osteoarthritis of knee; R62.7 Adult failure to thrive; Z66 Do not resuscitate; I95.9 Hypotension, unspecified; R00.0 Tachycardia, unspecified; Z86.73 Personal history of transient ischemic attack (TIA), and cerebral infarction without residual deficits; Z68.31 Body mass index [BMI] 31.0-31.9, adult; Z79.01 Long term (current) use of anticoagulants; Z82.49 Family history of ischemic heart disease and other diseases of the circulatory system; Z83.3 Family history of diabetes mellitus; Z87.440 Personal history of urinary (tract) infections; Z99.2 Dependence on renal dialysis; Z79.82 Long term (current) use of aspirin; Z79.899 Other long term (current) drug therapy; Z79.4 Long term (current) use of insulin
CPT/HCPCS: 70450; 80074; 83036; 83735; 84439; 84443; 87040; 87081; 87086; 93005; 93306; 93970; G0378; J0290; J0696; J0878; J0885; J1160; J1644; J1815; J2150; J3370; J3490; J7030; J7050